=== PATIENT | male | born 1990 | race African-American/Black ===

== ENCOUNTER 2019-02-27 21:07 | Emergency (ER) | payer OTHER ==
[~2019-02-27] VITALS: Ht 177.8 cm; Wt 78.7 kg
[2019-02-27 21:12] VITALS: Ht 177.8 cm; Wt 78.7 kg
[2019-02-27] MEDS ORDERED: LORAZEPAM 0.5 MG TAB PO ONE (22:30)
--- NOTE | 2019-02-27 22:30 | ERD ---
ER Documentation Chief Complaint Chief Complaint anxiety x1 week w/ SI. no HI. states "im in crisis" HPI This is a 28-year-old man who states he has been feeling more anxious than usual and manic x about 10 days. He states he has a remote history of bipolar disorder and depression but does not recall what he was using years ago to help his symptoms. He states he wants a mental health evaluation tonight to provide recommendations for outpatient therapy but he does deny suicidal homicidal ideation. He denies recent fevers or chills, no weight loss, no vomiting or diarrhea. ROS All systems reviewed and are negative except as per history of present illness. Medications Home Meds Active Scripts Hydroxyzine Hcl* (Hydroxyzine Hcl*) 50 Mg Tablet, 50 MG PO BID PRN for ANXIETY, #30 TAB Prov:MERVIN SHAHID MD 02/28/19 Allergies Allergies: Coded Allergies: No Known Allergy (Unverified , 02/27/19) PMhx/Soc Medical and Surgical Hx: pt denies Surgical Hx Hx Psychiatric Problems: Yes (BIPOLAR) Hx Miscellaneous Medical Probl: No Hx Alcohol Use: No Hx Substance Use: No Hx Tobacco Use: No Smoking Status: Unknown if ever smoked FmHx Family History: No diabetes Physical Exam Vitals Vital Signs Date Temp Pulse Resp B/P (MAP) Pulse Ox O2 O2 Flow FiO2 Time Delivery Rate 02/27/19 98.8 96 16 162/86 95 21:12 (111) Physical Exam Const: No acute distress, anxious, afebrile, well-groomed Resp: Clear to auscultation bilaterally Cardio: Regular rate and rhythm, no murmurs Abd: Soft, non tender, non distended. Normal bowel sounds Skin: No petechiae or rashes Back: No midline or flank tenderness Ext: No cyanosis, or edema Neur: Awake and alert x3, no focal deficits or facial asymmetry, pupils equal round reactive to light Psych: Anxious appearing Result Diagram: 02/27/19225002/27/192250 Results 24 hrs Laboratory Tests Test 02/27/19 22:51 White Blood Count 7.9 10^3/ul Red Blood Count 5.05 10^6/ul Hemoglobin 14.9 g/dl Hematocrit 43.0 % Mean Corpuscular Volume 85.1 fl Mean Corpuscular Hemoglobin 29.5 pg Mean Corpuscular Hemoglobin Concent 34.7 g/dl Red Cell Distribution Width 13.6 % Platelet Count 284 10^3/UL Mean Platelet Volume 10.0 fl Immature Granulocytes % 0.300 % Neutrophils % 72.3 % Lymphocytes % 18.2 % Monocytes % 8.7 % Eosinophils % 0.1 % Basophils % 0.4 % Nucleated Red Blood Cells % 0.0 /100WBC Immature Granulocytes # 0.020 10^3/ul Neutrophils # 5.7 10^3/ul Lymphocytes # 1.4 10^3/ul Monocytes # 0.7 10^3/ul Eosinophils # 0.0 10^3/ul Basophils # 0.0 10^3/ul Nucleated Red Blood Cells # 0.0 10^3/ul Urine Color YELLOW Urine Clarity SLIGHTLY CLOUDY Urine pH 5.0 Urine Specific [place] 1.025 Urine Ketones NEGATIVE mg/dL Urine Nitrite NEGATIVE mg/dL Urine Bilirubin NEGATIVE mg/dL Urine Urobilinogen NEGATIVE mg/dL Urine Leukocyte Esterase NEGATIVE Carol/ul Urine Microscopic RBC 2 /HPF Urine Microscopic WBC 2 /HPF Urine Bacteria FEW /HPF Urine Hemoglobin 2+ mg/dL Urine Glucose NEGATIVE mg/dL Urine Total Protein NEGATIVE mg/dl Sodium Level 142 mmol/L Potassium Level 4.5 mmol/L Chloride Level 104 mmol/L Carbon Dioxide Level 28 mmol/L Anion Gap 10 Blood Urea Nitrogen 15 mg/dl Creatinine 0.88 mg/dl Est Glomerular Filtrat Rate mL/min > 60 mL/min Glucose Level 93 mg/dl Calcium Level 10.1 mg/dl Total Bilirubin 0.5 mg/dl Direct Bilirubin 0.00 mg/dl Indirect Bilirubin 0.5 mg/dl Aspartate Amino Transf (AST/SGOT) 19 IU/L Alanine Aminotransferase (ALT/SGPT) 16 IU/L Alkaline Phosphatase 49 IU/L Total Protein 7.7 g/dl Albumin 4.6 g/dl Globulin 3.10 g/dl Albumin/Globulin Ratio 1.48 Salicylates Level < 1.0 mg/dl Urine Opiates Screen Negative Acetaminophen Level < 10.0 ug/ml Urine Barbiturates Negative Urine Amphetamines Screen Negative Urine Benzodiazepines Screen Negative Urine Cocaine Screen Negative Urine Cannabinoids Negative Ethyl Alcohol Level < 10.0 mg/dl Current Medications Medications Dose Sig/Rober Start Time Status Last (Trade) Ordered Route PRN Stop Time Admin Dose Reason Admin Lorazepam 0.5 mg ONCE ONCE 02/27/19 DC 02/27/19 (Ativan) PO 22:30 02/27/19 22:49 22:31 Procedures/MDM I administered lorazepam 0.5 mg p.o. x1. CBC and electrolytes are normal, liver function tests normal, drug screen negative, ethanol level negative. Tele-psychiatry evaluated the patient and provided multiple verbal and written recommendations, patient will receive a prescription for hydroxyzine as needed daily. Patient admitted to having mental health clinic appointment scheduled in about 1 month. Recommendation by tele-psychiatry was discharged for continued outpatient management. Differential diagnoses considered, included but not limited to acute coronary syndrome, pulmonary embolism, aortic dissection, abdominal aortic aneurysm, sepsis, stroke, meningitis, encephalitis, pneumonia, appendicitis, cholecystitis, bowel obstruction, pyelonephritis, nephrolithiasis, cystitis, as well as metabolic, hematologic, and electrolyte abnormalities. As well as abscess, cellulitis, fractures, and dislocations. Patient feels much better at this time, and vital signs are normal, symptoms have improved. I did give strict instructions to return to the ED if symptoms continue or worsen, patient will otherwise follow-up with primary care physician. Patient understood instructions and agreed to plan. Disclaimer: Inadvertent spelling and grammatical errors are likely due to EHR/dictation software use and do not reflect on the overall quality of patient care. Also, please note that the electronic time recorded on this note does not necessarily reflect the actual time of the patient encounter. Departure Diagnosis: Primary Impression: Acute anxiety Additional Impression: Bipolar disorder Active/Remission status: currently active Current bipolar episode type: manic Current episode severity: moderate Qualified Codes: F31.12 - Bipolar disorder, current episode manic without psychotic features, moderate Condition: MERVIN Chavez MD February 27, 2019 22:30
--- NOTE | 2019-02-28 02:10 | PSY ---
Date/Time of Note Date/Time of Note DATE: 02/28/19 TIME: 01:34 Psychiatric Subjective Eval Consent Pt consented to telemedicine: Yes Subjective Evaluation Patient location: emergency Chief Complaint: anxiety x1 week w/ SI. no HI. states "im in crisis" History of present illness He stated he was feeling "unwell" and has felt unwell for 10 days. He stated he has felt very "manic, anxious, and depressed." He stated he has been dealing with a lot of personal issues and questioning his priorities and what he wants to do with his life. He stated he has also felt depressed about the same issues for the past 10 days. He stated he's been sleeping well for the past 10 days though but prefers to sleep during the day and be active at night. He has had a "fine" appetite. He has "good" energy. When asked if he was feeling suicidal he stated, "I was depressed. I was in a dark place." Ultimately he did say that he doesn't want to kill himself and has "a lot of goals and plans... 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 He denied any violent thoughts or urges though stated when he was bullied in high school he would sometimes fight back. Past psychiatric history Stated he was diagnosed with autism at age 12 and "bipolar" at age 15. He remembers taking Prozac and Adderall around age 15 to age 17. He stated he has gone to a clinic and is scheduled to see a prescriber in early March. 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 sports umpire Psychiatric Objective Eval Mental Status Examination: Appearance: Groomed Eye Contact: Poor Psychomotor Activity: Normal Behavior: Cooperative Speech: Clear AFFECT: Appropriate Mood: Other ("A little bit better.") Though Process: Linear Thought Content: Normal Homicidal: No On 72 hour hold: No Orientation: x4 Cognition: Alert Insight: Intact Judgement: Intact Attention Span: Intact Laboratory Results Laboratory Tests Test 02/27/19 22:51 White Blood Count 7.9 10^3/ul Red Blood Count 5.05 10^6/ul Hemoglobin 14.9 g/dl Hematocrit 43.0 % Mean Corpuscular Volume 85.1 fl Mean Corpuscular Hemoglobin 29.5 pg Mean Corpuscular Hemoglobin Concent 34.7 g/dl Red Cell Distribution Width 13.6 % Platelet Count 284 10^3/UL Mean Platelet Volume 10.0 fl Immature Granulocytes % 0.300 % Neutrophils % 72.3 % Lymphocytes % 18.2 % Monocytes % 8.7 % Eosinophils % 0.1 % Basophils % 0.4 % Nucleated Red Blood Cells % 0.0 /100WBC Immature Granulocytes # 0.020 10^3/ul Neutrophils # 5.7 10^3/ul Lymphocytes # 1.4 10^3/ul Monocytes # 0.7 10^3/ul Eosinophils # 0.0 10^3/ul Basophils # 0.0 10^3/ul Nucleated Red Blood Cells # 0.0 10^3/ul Urine Color YELLOW Urine Clarity SLIGHTLY CLOUDY Urine pH 5.0 Urine Specific [place] 1.025 Urine Ketones NEGATIVE mg/dL Urine Nitrite NEGATIVE mg/dL Urine Bilirubin NEGATIVE mg/dL Urine Urobilinogen NEGATIVE mg/dL Urine Leukocyte Esterase NEGATIVE Carol/ul Urine Microscopic RBC 2 /HPF Urine Microscopic WBC 2 /HPF Urine Bacteria FEW /HPF Urine Hemoglobin 2+ mg/dL Urine Glucose NEGATIVE mg/dL Urine Total Protein NEGATIVE mg/dl Sodium Level 142 mmol/L Potassium Level 4.5 mmol/L Chloride Level 104 mmol/L Carbon Dioxide Level 28 mmol/L Anion Gap 10 Blood Urea Nitrogen 15 mg/dl Creatinine 0.88 mg/dl Est Glomerular Filtrat Rate mL/min > 60 mL/min Glucose Level 93 mg/dl Calcium Level 10.1 mg/dl Total Bilirubin 0.5 mg/dl Direct Bilirubin 0.00 mg/dl Indirect Bilirubin 0.5 mg/dl Aspartate Amino Transf (AST/SGOT) 19 IU/L Alanine Aminotransferase (ALT/SGPT) 16 IU/L Alkaline Phosphatase 49 IU/L Total Protein 7.7 g/dl Albumin 4.6 g/dl Globulin 3.10 g/dl Albumin/Globulin Ratio 1.48 Salicylates Level < 1.0 mg/dl Urine Opiates Screen Negative Acetaminophen Level < 10.0 ug/ml Urine Barbiturates Negative Urine Amphetamines Screen Negative Urine Benzodiazepines Screen Negative Urine Cocaine Screen Negative Urine Cannabinoids Negative Ethyl Alcohol Level < 10.0 mg/dl Assessment and Plan Assessment/Diagnosis Diagnosis Adjustment Disorder with Anxiety and Depression Recommendation/Plan Medication Management Vistaril 50mg BID PRN anxiety Multiple antipsychotics: No Discharge Disposition: Community (home) Legal Status: Voluntary Other Individual reported some anxiety and depression for 10 days or so but stated he really has not had suicidal thoughts and talked about his future goals and plans. He presented without any signs of psychosis, agitation, anxiety, or heber on exam and was very treatment oriented and future oriented. He asked about a medication to help reduce anxiety. Overall he did not appear at high imminent suicide risk, and a prescription for Vistaril can help mitigate his anxiety. He agreed to return to the ED if his symptoms worsened. MELINA BRANCH MD February 28, 2019 01:45
[2019-02-28] MEDS ORDERED: HYDR50TA15 PO (02:14)
[2019-02-28 02:49] VITALS: BP 141/81; PULSE 79; RESP 16
== END 2019-02-28 03:02 | disposition home or self-care (01) ==
LOC: E/R 21:07
DX: F41.9 Anxiety disorder, unspecified (principal); F31.12 Bipolar disorder, current episode manic without psychotic features, moderate
CPT/HCPCS: 36415; 80053; 80307; 81001; 85025; Z7502; Z7610; 99283